=== PATIENT | male | born 1995 | race African-American/Black ===

== ENCOUNTER 2017-01-06 11:23 | Emergency (ER) | payer SELFPAY ==
[~2017-01-06] VITALS: Ht 177.8 cm; Wt 120.0 kg
[2017-01-06] MEDS ORDERED: SODIUM CHLORIDE 0.9% 1,000 ML IV ONE (11:30)
[2017-01-06] MEDS ORDERED: ONDANSETRON HCL 4MG/2ML VIAL IV STA (11:30)
[2017-01-06] MEDS ORDERED: KETOROLAC 30MG/ML VIAL IV STA (11:30)
[2017-01-06 11:58] LABS: BASOPHILS % 0.7 % (0.0-2.0); EOSINOPHILS % 0.6 % (0.0-5.0); HEMOGLOBIN. 17.1 g/dL (14.0-18.0); LYMPHOCYTES % 11.2 % (20.0-50.0); MEAN CORPUSCULAR HEMOGLOBIN 29.1 pg (28.0-32.0); MEAN CORPUSCULAR VOLUME 83.4 fL (80.0-94.0); MEAN PLATELET VOLUME 7.2 fl (7.4-10.4); MONOCYTES % 5.7 % (2.0-8.0); NEUTROPHILS % 81.8 % (40.0-76.0); PLATELET 252 x1000/uL (130-400); RED BLOOD CELL COUNT 5.88 mill/uL (4.7-6.1); RED CELL DISTRIBUTION WIDTH 13.8 % (11.6-14.6)
[2017-01-06 12:03] LABS: INR 1.1; PROTHROMBIN TIME 11.1 sec (9.4-11.6)
[2017-01-06 12:04] LABS: AMMONIA 15 uMol/L (<32)
[2017-01-06 12:16] LABS: CHLORIDE 104 mEq/L (98-107)
[2017-01-06 12:24] LABS: CARBON DIOXIDE 24 mEq/L (21-32); ETHANOL BLOOD < 10 mg/dL
[2017-01-06 16:33] VITALS: BP 125/65
== END 2017-01-06 16:34 | disposition home or self-care (01) ==
LOC: ER 11:55
DX: R10.13 Epigastric pain (principal); R11.2 Nausea with vomiting, unspecified; R41.82 Altered mental status, unspecified; R42 Dizziness and giddiness; R03.0 Elevated blood-pressure reading, without diagnosis of hypertension; E87.6 Hypokalemia; Z86.59 Personal history of other mental and behavioral disorders
CPT/HCPCS: 36415; 70450; 74176; 80053; 82140; 83690; 85025; 85610; 96360; 99285; G0482; J7030